=== PATIENT | female | born 1990 | race Caucasian/White ===

== ENCOUNTER 2017-06-30 15:54 | Emergency (ER) | payer SELFPAY ==
[~2017-06-30] VITALS: Ht 167.6 cm; Wt 83.1 kg
[2017-06-30 16:04] VITALS: Ht 167.6 cm; Wt 83.1 kg
[2017-06-30 20:02] VITALS: BP 129/74
== END 2017-06-30 20:02 | disposition home or self-care (01) ==
LOC: ED 15:54
DX: J06.9 Acute upper respiratory infection, unspecified (principal)

== ENCOUNTER 2019-08-15 19:27 | Emergency (ER) | payer MEDICAID ==
[~2019-08-15] VITALS: Ht 165.1 cm; Wt 85.3 kg
[2019-08-15 19:34] VITALS: BP 134/65; Ht 165.1 cm; Wt 85.3 kg
== END 2019-08-16 01:44 | disposition home or self-care (01) ==
LOC: ED 19:27
DX: J11.1 Influenza due to unidentified influenza virus with other respiratory manifestations (principal); F17.210 Nicotine dependence, cigarettes, uncomplicated
CPT/HCPCS: 87804

== ENCOUNTER 2020-02-09 10:37 | Emergency (ER) | payer MEDICAID, SELFPAY ==
[~2020-02-09] VITALS: Ht 167.6 cm; Wt 90.7 kg
[2020-02-09 10:49] VITALS: BP 128/88; Ht 167.6 cm; Wt 90.7 kg
== END 2020-02-09 13:32 | disposition home or self-care (01) ==
LOC: ED 10:37
DX: S91.332A Puncture wound without foreign body, left foot, initial encounter (principal); M79.10 Myalgia, unspecified site; Z20.828 Contact with and (suspected) exposure to other viral communicable diseases; Z86.2 Personal history of diseases of the blood and blood-forming organs and certain disorders involving the immune mechanism; W22.8XXA Striking against or struck by other objects, initial encounter; Y93.89 Activity, other specified; Y92.89 Other specified places as the place of occurrence of the external cause; Y99.8 Other external cause status
CPT/HCPCS: Q0092; U0003-CS